=== PATIENT | female | born 1980 | race Caucasian/White ===

== ENCOUNTER 2018-04-08 16:51 | Emergency (ER) | payer BC ==
[2018-04-08 18:15] VITALS: O2SAT 97
--- NOTE | 2018-04-08 18:44 | ERPHSYRPT ---
- History of Present Illness Time Seen by Provider: 04/08/18 18:29 Source: patient Exam Limitations: no limitations Patient Subjective Stated Complaint: patient went to [facility] with rash and ear ache , then went back to [facility] care on and they gave her antibiotic for ear and was given 17days of cefaclor , rash has continued to get worse and ears are now draining and fuzzt Triage Nursing Assessment: patient alert nad orientedx3, able to ambulate by self gait is steady, ears both reddened and lymph nodes on left side swollen behind ear , patients throat reddened and swollen with blisters, pinpoint rash all over torso and legs backs of shoulders. Physician History: 37-year-old white female with history of diabetes type 2, asthma, GERD, ulcers, anxiety, ADD, depression, panic disorder. Patient arrives with complaint of a rash on her chest, abdomen and legs for 1-1/ 2 weeks Patient states the rash is pruritic patient has been seen at 2 times for otitis media and is on Ceclor however she states the rash was there before she started the ceclor. Past medical history includes diabetes, asthma, GERD, ulcers, anxiety, ADD, depression, panic disorder. Past surgical history includes , right arm fracture. Patient states she has an IUD and does not have a chance for . Timing/Duration: week(s) (1 1/2 weeks) Severity: moderate Modifying Factors: Improves With: nothing Associated Symptoms: rash, No nausea, No vomiting, No abdominal pain, No shortness of breath, No heartburn, No diaphoresis, No cough, No chills, No chest pain, No fever, No headaches, No loss of appetite, No malaise, No syncope , No seizure, No weakness Allergies/Adverse Reactions: amoxicillin Allergy (Verified 02/09/15 15:36) azithromycin [From Zithromax Z-Brian] Allergy (Verified 02/09/15 15:36) Penicillins Allergy (Verified 02/09/15 15:36) Home Medications: Albuterol Sulfate [Ventolin Hfa] 8 gm IH BID 02/09/15 [History] Alprazolam 1 mg [Xanax 1 mg] 1 mg PO DAILY PRN 02/09/15 [History] Aripiprazole 10 mg [Abilify 10 MG] 10 mg PO DAILY 02/09/15 [History] Cetirizine HCl [Zyrtec] 10 mg PO DAILY 02/09/15 [History] Fluticasone/Salmeterol 115/21* [Advair Hfa 115/21 Mcg Inhaler] 2 puff IH BIDRT PRN 02/09/15 [History] Insulin Glargine [Lantus Insulin] 30 unit SQ DAILY 02/09/15 [History] Insulin Lispro [Humalog] 1 unit SQ QID 02/09/15 [History] Omeprazole 20 MG [Prilosec 20 mg] 40 mg PO DAILY 02/09/15 [History] Hx Tetanus, Diphtheria Vaccination/Date Given: No Hx Influenza Vaccination/Date Given: No Hx Pneumococcal Vaccination/Date Given: No Immunizations Up to Date: Yes - Review of Systems Constitutional: No Fever, No Chills Eyes: No Symptoms Ears, Nose, & Throat: Ear Pain, Nose Congestion, Throat Pain, No Ear Discharge, No Hearing Changes, No Tinnitus, No Nose Pain, No Nose Discharge, No Epistaxis, No Mouth Pain, No Mouth Swelling, No Loose Teeth, No Throat Swelling, No Hoarse , No Painful Swallowing, No Snoring (on.), No Stridor Respiratory: No Cough, No Dyspnea Cardiac: No Chest Pain, No Edema, No Syncope Abdominal/Gastrointestinal: No Abdominal Pain, No Nausea, No Vomiting, No Diarrhea Genitourinary Symptoms: No Dysuria Musculoskeletal: No Back Pain, No Neck Pain Skin: Rash, No Cellulitis, No Decubiti, No Induration, No Pruritis, No Skin Lesions, No Dryness Neurological: No Dizziness, No Focal Weakness, No Sensory Changes Psychological: No Symptoms Endocrine: No Symptoms All Other Systems: Reviewed and Negative - Past Medical History Pertinent Past Medical History: Yes Neurological History: No Pertinent History ENT History: No Pertinent History Cardiac History: No Pertinent History Respiratory History: Asthma Endocrine Medical History: Diabetes Type II Musculoskeletal History: No Pertinent History GI Medical History: GERD, Ulcer History: No Pertinent History Psycho-Social History: Anxiety, Attention Deficit Disorder, Depression, Panic Disorder Female Reproductive Disorders: No Pertinent History - Past Surgical History Past Surgical History: Yes Neuro Surgical History: No Pertinent History Cardiac: No Pertinent History Respiratory: No Pertinent History Gastrointestinal: No Pertinent History Genitourinary: No Pertinent History Musculoskeletal: Orthopedic Surgery Female Surgical History: Section Other Surgical History: rt arm surgery - Social History Smoking Status: Never smoker Exposure to second hand smoke: No Drug Use: none Patient Lives Alone: Yes - Female History Hx Now: No - Nursing Vital Signs Nursing Vital Signs: Initial Vital Signs Temperature 98.3 F 04/08/18 16:52 Pulse Rate 109 H 04/08/18 16:52 Respiratory Rate 16 04/08/18 16:52 Blood Pressure 155/105 04/08/18 16:52 O2 Sat by Pulse Oximetry 95 04/08/18 16:52 Pain Scale Pain Intensity 0 - Physical Exam General Appearance: mild distress, alert Eye Exam: PERRL/EOMI (I will), eyes nml inspection Ears, Nose, Throat Exam: TMs normal (TM is mildly erythematous bilaterally), pharyngeal erythema, No tonsillar exudate Neck Exam: normal inspection, non-tender, supple, full range of motion Respiratory Exam: normal breath sounds Cardiovascular Exam: regular rate/rhythm, normal heart sounds, normal peripheral pulses, capillary refill <2 sec Gastrointestinal/Abdomen Exam: soft, normal bowel sounds, No tenderness, No mass Back Exam: normal inspection, normal range of motion, No CVA tenderness, No vertebral tenderness Extremity Exam: normal inspection Neurologic Exam: alert, oriented x 3, cooperative, phonograph mechanic II-XII nml as tested, normal mood/affect, nml cerebellar function, nml station & gait, sensation nml, No motor deficits Skin Exam: other (patient with diffuserash on chest abdomen legs, with some excoriation resembling scabies) SpO2 Interpretation: normal (97%) SpO2: 97 Oxygen Delivery: Room Air - Course Nursing assessment & vital signs reviewed: Yes Ordered Tests: Active Orders 24 hr Category Date Time Status Accucheck STAT Care 04/08/18 18:35 Active Lab/Rad Data: Laboratory Results 04/08/18 Range/Units 17:15 Group A Strep Antibody NEGATIVE (NEGATIVE) - Progress Progress: improved Progress Note: 04/08/18 18:44 37-year-old white female arrives with complaint of a diffuse rash on her chest abdomen and legs, she is on Ceclor for bilateral ear infections however she started just before the rash. Rash is pruritic and resembles scabies. Will place patient on permethrin cream. Patient to continue Ceclor. Strep is negative. Accu-Chek around 115 - Departure Time of Disposition: 18:45 Departure Disposition: Home Clinical Impression: Scabies, Rash, otitis media undergoing treatment Condition: Fair Critical Care Time: No Referrals: ROSE JACOBSON [Primary Care Provider] - Additional Instructions: Return home. Permethrin cream apply from neck down wash off after 8 hours. Benadryl 50 mg orally every 6 hours as needed for itching hold for somnolence, Plenty of fluids. Follow-up with your family doctor symptoms no better 72 hours, or persist longer than one week or become worse Return for acute distress or for severe symptoms.
[2018-04-08] MEDS ORDERED: Elimite CREAM TP ONE (18:49)
[2018-04-08 19:18] VITALS: BP 140/98; PULSE 96
== END 2018-04-08 19:26 | disposition home or self-care (01) ==
LOC: ED 16:51
DX: B86 Scabies (principal); H66.93 Otitis media, unspecified, bilateral; Z79.899 Other long term (current) drug therapy; E11.9 Type 2 diabetes mellitus without complications; Z79.4 Long term (current) use of insulin
CPT/HCPCS: 82962; 87651; 99283; A9270-GY

== ENCOUNTER 2018-09-23 10:17 | Emergency (ER) | payer BC, OTHER ==
[2018-09-23] MEDS ORDERED: XYLOCAINE 1% HCL 20 ML MDV ONE (11:34)
[2018-09-23] MEDS ORDERED: Rocephin 1000 MG INJ ONE (11:34)
--- NOTE | 2018-09-23 11:35 | ERPHSYRPT ---
- History of Present Illness Time Seen by Provider: 09/23/18 11:29 Source: patient Exam Limitations: no limitations Patient Subjective Stated Complaint: states she fell one week ago and scraped right elbow and has gotten worse over the past two days. Triage Nursing Assessment: ambulated to room per self. skin w/d, color normal, resp easy. has abrasion noted to right elbow with serous drainage noted. some swelling and redness noted. Physician History: states she fell one week ago and scraped right elbow and has gotten worse over the past two days. She is diabetic and her blood sugars are also running in 200 - 250 range Timing/Duration: week(s) Severity: mild Associated Symptoms: denies symptoms Allergies/Adverse Reactions: amoxicillin Allergy (Verified 09/23/18 10:54) azithromycin [From Zithromax Z-Brian] Allergy (Verified 09/23/18 10:54) Penicillins Allergy (Verified 09/23/18 10:54) Home Medications: Albuterol Sulfate [Ventolin Hfa] 8 gm IH BID 02/09/15 [History] Alprazolam 1 mg [Xanax 1 mg] 1 mg PO DAILY PRN 02/09/15 [History] Cetirizine HCl [Zyrtec] 10 mg PO DAILY 02/09/15 [History] Insulin Lispro [Humalog] 1 unit SQ QID 02/09/15 [History] Omeprazole 20 MG [Prilosec 20 mg] 40 mg PO DAILY 02/09/15 [History] Prazosin HCl 2 mg PO BID 09/23/18 [History] Hx Tetanus, Diphtheria Vaccination/Date Given: No Hx Influenza Vaccination/Date Given: No Hx Pneumococcal Vaccination/Date Given: No - Review of Systems Constitutional: No Fever, No Chills Eyes: No Symptoms Ears, Nose, & Throat: No Symptoms Respiratory: No Cough, No Dyspnea Cardiac: No Chest Pain, No Edema, No Syncope Abdominal/Gastrointestinal: No Abdominal Pain, No Nausea, No Vomiting, No Diarrhea Genitourinary Symptoms: No Dysuria Musculoskeletal: No Back Pain, No Neck Pain Skin: Cellulitis, Induration, No Rash Neurological: No Dizziness, No Focal Weakness, No Sensory Changes Psychological: No Symptoms Endocrine: No Symptoms All Other Systems: Reviewed and Negative - Past Medical History Pertinent Past Medical History: Yes Neurological History: No Pertinent History ENT History: No Pertinent History Cardiac History: No Pertinent History Respiratory History: Asthma Endocrine Medical History: Diabetes Type II Musculoskeletal History: No Pertinent History GI Medical History: GERD, Ulcer History: No Pertinent History Psycho-Social History: Anxiety, Attention Deficit Disorder, Depression, Panic Disorder Female Reproductive Disorders: No Pertinent History - Past Surgical History Past Surgical History: Yes Neuro Surgical History: No Pertinent History Cardiac: No Pertinent History Respiratory: No Pertinent History Gastrointestinal: No Pertinent History Genitourinary: No Pertinent History Musculoskeletal: Orthopedic Surgery Female Surgical History: Section Other Surgical History: rt arm surgery - Social History Smoking Status: Current every day smoker Exposure to second hand smoke: No Drug Use: none Patient Lives Alone: Yes - Female History Hx Now: No - Nursing Vital Signs Nursing Vital Signs: Initial Vital Signs Temperature 98.6 F 09/23/18 10:46 Pulse Rate 114 H 09/23/18 10:46 Respiratory Rate 20 09/23/18 10:46 Blood Pressure 126/109 09/23/18 10:46 O2 Sat by Pulse Oximetry 96 09/23/18 10:46 Pain Scale Pain Intensity 5 - Physical Exam General Appearance: no apparent distress, alert Eye Exam: PERRL/EOMI, eyes nml inspection Ears, Nose, Throat Exam: normal ENT inspection, TMs normal, pharynx normal, moist mucous membranes Neck Exam: normal inspection, non-tender, supple, full range of motion Respiratory Exam: normal breath sounds, lungs clear, No respiratory distress Cardiovascular Exam: regular rate/rhythm, normal heart sounds, normal peripheral pulses Gastrointestinal/Abdomen Exam: soft, normal bowel sounds, No tenderness, No mass Back Exam: normal inspection, normal range of motion, No CVA tenderness, No vertebral tenderness Extremity Exam: normal inspection, normal range of motion, pelvis stable Neurologic Exam: alert, oriented x 3, cooperative, normal mood/affect, nml cerebellar function, nml station & gait, sensation nml, No motor deficits Skin Exam: normal color, warm, dry, No rash Lymphatic Exam: No adenopathy SpO2: 96 - Course Nursing assessment & vital signs reviewed: Yes Ordered Tests: Medication Summary Discontinued Medications Generic Name Dose Route Start Last Admin Trade Name Freq PRN Reason Stop Dose Admin Ceftriaxone Sodium 1,000 mg 09/23/18 11:25 Rocephin 1000 Mg Inj IM 09/23/18 11:26 STAT ONE Ceftriaxone Sodium Confirm 09/23/18 11:34 Rocephin 1000 Mg Inj Administered 09/23/18 11:35 Dose 1,000 mg .ROUTE .STK-MED ONE Diphtheria/Tetanus/Acell Pertussis Confirm 09/23/18 11:37 Adacel Vial Administered 09/23/18 11:38 Dose 0.5 ml IM .STK-MED ONE Lidocaine HCl Confirm 09/23/18 11:34 Xylocaine 1% Hcl 20 Ml Mdv Administered 09/23/18 11:35 Dose 2 ml .ROUTE .STK-MED ONE - Progress Progress: unchanged Counseled pt/family regarding: diagnosis, need for follow-up - Departure Departure Disposition: Home Clinical Impression: Cellulitis of right elbow Type 2 diabetes mellitus Qualifiers: Diabetes mellitus residential insulin use: with residential use Diabetes mellitus complication status: with skin complications Diabetes mellitus complication detail: with other skin ulcer Qualified Code(s): E11.622 - Type 2 diabetes mellitus with other skin ulcer Condition: Stable Critical Care Time: No Referrals: ROSE JACOBSON [Primary Care Provider] - Instructions: Cellulitis (Skin Infection), Adult (DC) Additional Instructions: Discharge/Care Plan FABI QUINTEROS was seen on 09/23/18 in the Emergency Room. The patient was counseled regarding Diagnosis,Lab results, Imaging studies, need for follow up and when to return to the Emergency Room. Prescriptions given: Discharge Note I have spoken with the patient and/or caregivers. I have explained the patient' s condition, diagnosis and treatment plan based on the information available to me at this time. I have answered the patient's and/or caregiver's questions and addressed any concerns. The patient and/or caregivers have as good understanding of the patient's diagnosis, condition and treatment plan as can be expected at this point. The vital signs have been stable. The patient's condition is stable and appropriate for discharge from the emergency department. The patient will pursue further outpatient evaluation with the primary care physician or other designated or consulting physician as outlined in the discharge instructions. The patient and/or caregivers are agreeable to this plan of care and follow-up instructions have been explained in detail. The patient and/or caregivers have received these instruction. The patient/and or caregivers are aware that any significant change in condition or worsening of symptoms should prompt an immediate return to this or the closest emergency department or call 911. Prescriptions: Fluconazole 100 mg [Diflucan 100 MG] 100 mg PO DAILY #3 tablet Levofloxacin [Levaquin 500 MG Tablet] 500 mg PO QAM #10 tablet
[2018-09-23] MEDS ORDERED: Adacel Vial IM ONE (11:37)
[2018-09-23 11:56] VITALS: BP 128/98; PULSE 106; O2SAT 97
[2018-09-23] MEDS: Rocephin 1000 MG INJ IM ONE (11:57)
[2018-09-23] MEDS: Adacel Vial IM ONE (12:05)
== END 2018-09-23 12:10 | disposition home or self-care (01) ==
LOC: ED 10:17
DX: L03.113 Cellulitis of right upper limb (principal); E11.622 Type 2 diabetes mellitus with other skin ulcer; Z79.899 Other long term (current) drug therapy
CPT/HCPCS: 90471; 90715; 96372; 99284; J0696

== ENCOUNTER 2018-11-12 00:26 | Emergency (ER) | payer OTHER ==
[2018-11-12 00:32] VITALS: O2SAT 97
[2018-11-12 01:09] LABS: ANION GAP 17.6 MEQ/L (5-15); BLOOD UREA NITROGEN 5 mg/dL (7-17); CHLORIDE 109 mmol/L (98-107); Calcium 9.3 mg/dL (8.4-10.2); Carbon Dioxide 25 mmol/L (22-30); Glucose 309 mg/dL (74-106); Potassium 4.1 mmol/L (3.5-5.1); SODIUM 147 mmol/L (137-145)
--- NOTE | 2018-11-12 01:29 | ERPHSYRPT ---
- History of Present Illness Source: patient Exam Limitations: no limitations Patient Subjective Stated Complaint: Pt bib [employer] for medical clearance for suspected DUI. Pt states she drank "maybe a 6 pack" of beer tonight. Triage Nursing Assessment: Dante/warm/dry, resp easy, a&ox4, steady gait, no distress noted Physician History: Pt is a 38 y/o female that was brought to the ED for medical clearence. She was stopped for DUI by the police, and was brought to the ED for clearence. Pt denies complains, and is feeling well. She states, has h/o DM II, Depression and Anxiety. She is using Tresiba Insulin, Januvia, Trulicity and Jardience. Timing/Duration: today Severity: mild Associated Symptoms: denies symptoms Allergies/Adverse Reactions: amoxicillin Allergy (Verified 09/23/18 10:54) azithromycin [From Zithromax Z-Brian] Allergy (Verified 09/23/18 10:54) Penicillins Allergy (Verified 09/23/18 10:54) Sulfa (Sulfonamide Antibiotics) Allergy (Verified 11/12/18 00:28) Home Medications: Albuterol Sulfate [Ventolin Hfa] 8 gm IH BID 02/09/15 [History] Alprazolam 1 mg [Xanax 1 mg] 1 mg PO DAILY PRN 02/09/15 [History] Cetirizine HCl [Zyrtec] 10 mg PO DAILY 02/09/15 [History] Insulin Lispro [Humalog] 1 unit SQ QID 02/09/15 [History] Omeprazole 20 MG [Prilosec 20 mg] 40 mg PO DAILY 02/09/15 [History] Prazosin HCl 2 mg PO BID 09/23/18 [History] Hx Tetanus, Diphtheria Vaccination/Date Given: No Hx Influenza Vaccination/Date Given: No Hx Pneumococcal Vaccination/Date Given: No Immunizations Up to Date: No - Review of Systems Constitutional: No Fever, No Chills Eyes: No Symptoms Ears, Nose, & Throat: No Symptoms Respiratory: No Cough, No Dyspnea Cardiac: No Chest Pain, No Edema, No Syncope Abdominal/Gastrointestinal: No Abdominal Pain, No Nausea, No Vomiting, No Diarrhea Genitourinary Symptoms: No Dysuria Musculoskeletal: No Back Pain, No Neck Pain Neurological: No Dizziness, No Focal Weakness, No Sensory Changes - Past Medical History Pertinent Past Medical History: Yes Neurological History: No Pertinent History ENT History: No Pertinent History Cardiac History: No Pertinent History Respiratory History: Asthma Endocrine Medical History: Diabetes Type II Musculoskeletal History: No Pertinent History GI Medical History: GERD, Ulcer History: No Pertinent History Psycho-Social History: Anxiety, Attention Deficit Disorder, Depression, Panic Disorder Female Reproductive Disorders: No Pertinent History - Past Surgical History Past Surgical History: Yes Neuro Surgical History: No Pertinent History Cardiac: No Pertinent History Respiratory: No Pertinent History Gastrointestinal: No Pertinent History Genitourinary: No Pertinent History Musculoskeletal: Orthopedic Surgery Female Surgical History: Section Other Surgical History: rt arm surgery - Social History Smoking Status: Current every day smoker Exposure to second hand smoke: Yes Drug Use: none Patient Lives Alone: No - Female History Hx Now: No - Nursing Vital Signs Nursing Vital Signs: Initial Vital Signs Temperature 97.6 F 11/12/18 00:27 Pulse Rate 118 H 11/12/18 00:27 Respiratory Rate 16 11/12/18 00:27 Blood Pressure 101/82 11/12/18 00:27 O2 Sat by Pulse Oximetry 97 11/12/18 00:27 Pain Scale Pain Intensity 0 - Physical Exam General Appearance: no apparent distress, alert Eye Exam: PERRL/EOMI, eyes nml inspection Ears, Nose, Throat Exam: normal ENT inspection, TMs normal, pharynx normal, moist mucous membranes Neck Exam: normal inspection, non-tender, supple, full range of motion Respiratory Exam: normal breath sounds, lungs clear, No respiratory distress Cardiovascular Exam: regular rate/rhythm, normal heart sounds, normal peripheral pulses Gastrointestinal/Abdomen Exam: soft, normal bowel sounds, No tenderness, No mass Back Exam: normal inspection, normal range of motion, No CVA tenderness, No vertebral tenderness Extremity Exam: normal inspection, normal range of motion, pelvis stable Neurologic Exam: alert, oriented x 3, cooperative, normal mood/affect, nml cerebellar function, nml station & gait, sensation nml, No motor deficits SpO2: 97 Ordered Tests: Active Orders 24 hr Category Date Time Status Alcohol [ETHYL ALCOHOL] Stat Lab 11/12/18 00:55 Completed BMP Stat Lab 11/12/18 00:56 Completed Lab/Rad Data: Laboratory Result Diagrams 11/12/18 00:56 Laboratory Results 11/12/18 11/12/18 Range/Units 00:56 00:55 Sodium 147 H (137-145) mmol/L Potassium 4.1 (3.5-5.1) mmol/L Chloride 109 H (98-107) mmol/L Carbon Dioxide 25 (22-30) mmol/L Anion Gap 17.6 H (5-15) MEQ/L BUN 5 L (7-17) mg/dL Creatinine 0.50 L (0.52-1.04) mg/dL Estimated GFR > 60.0 ML/MIN Glucose 309 H (74-106) mg/dL Calcium 9.3 (8.4-10.2) mg/dL Ethyl Alcohol 364 H (0-10) mg/dL - Progress Progress: improved Progress Note: 11/12/18 01:26 Pt was seen and examined. She is answering questions and communicting. Her ETOH level is 364. I did order BMP that showed elevated BG of 309. 6 units of Humalog SQ were ordered. Pt is cleared to d/c to police custody. Will see patient in: other (Police custody) - Departure Departure Disposition: Halfway/Care Home Clinical Impression: Alcohol intoxication Condition: Stable Critical Care Time: No Referrals: ROSE JACOBSON [Primary Care Provider] - Additional Instructions: Pt is d/c to police custody.
[2018-11-12] MEDS ORDERED: NovoLOG Insulin ONE (01:30)
[2018-11-12] MEDS: NovoLOG Insulin SQ ONE (01:31)
[2018-11-12 01:32] VITALS: BP 100/66; PULSE 101
== END 2018-11-12 01:40 | disposition home or self-care (01) ==
LOC: ED 00:26
DX: F10.129 Alcohol abuse with intoxication, unspecified (principal); Z02.89 Encounter for other administrative examinations
CPT/HCPCS: 36415; 80048; 80307; 96372; 99283; A9270-GY; G0480